=== PATIENT | male | born 1950 | race Hispanic/Latino ===

== ENCOUNTER 2018-10-30 04:33 | Inpatient (IN) | payer MEDICARE ==
[~2018-10-30] VITALS: Ht 175.3 cm; Wt 69.6 kg
[~2018-10-30 04:33] MED LIST: AMLO10TA7 PO; ASPI-555 PO; CARV12.511 PO; CLON0.1T PO; CLOP75TA32 PO; FERR325T22 PO; FOLI1TAB82 PO; FURO40TA5 PO; HUM10VIA6 SQ; HYDR-4153 PO; LISI2.5T2 PO; MULT-1258 PO; POTA10CA44 PO; ROSU20TA23 PO
[2018-10-30 05:08] LABS: BASOPHILS % (AUTO) 1.1 % (0.0-5.0); EOSINOPHILS % (AUTO) 2.5 % (0.0-8.0); HEMATOCRIT 29.9 % (42-54); LYMPHOCYTES % (AUTO) 8.9 % (21.0-51.0); MEAN CORPUSCULAR HEMOGLOBIN 28.5 pg (27.0-33.0); MEAN CORPUSCULAR VOLUME 86.4 fL (79-99); MONOCYTES % (AUTO) 7.5 % (3.0-13.0); PLATELET COUNT (AUTO) 102 K/uL (130-400); RED BLOOD CELL COUNT(AUTO) 3.46 MIL/uL (4.50-6.20); WHITE BLOOD COUNT (AUTO) 5.8 K/uL (4.8-10.8)
[2018-10-30 05:14] LABS: APPEARANCE,URINE Clear (CLEAR); BILIRUBIN,URINE Negative (NEGATIVE); COLOR,URINE Yellow (YELLOW); GLUCOSE, URINE (UA) TRACE mg/dL (NEGATIVE); KETONES,URINE Negative (NEGATIVE); LEUKOCYTE ESTERASE ,URINE Negative (NEGATIVE); NITRATE,URINE Negative (NEGATIVE); OCCULT BLOOD,URINE Negative (NEGATIVE); PROTEIN,URINE 300 mg/dL (NEGATIVE)
[2018-10-30 05:20] LABS: CREATININE 2.9 mg/dL (0.5-1.5); POTASSIUM 3.9 mmol/L (3.5-5.1)
[2018-10-30 05:21] LABS: BACTERIA,URINE None Seen /HPF (None Seen); RBC,URINE 0-1 /HPF (0-1); WBC,URINE 0-1 /HPF (0-1)
[2018-10-30 05:21] LABS: INR 1.1 (0.85-1.15); PARTIAL THROMBOPLASTIN TIME 32.3 SEC (26.3-35.5); PROTHROMBIN TIME 11.5 SEC (9.6-11.6)
[2018-10-30 05:22] LABS: AMPHET/METH SCREEN,URINE NEGATIVE (NEGATIVE); BARBITURATE SCREEN, URINE NEGATIVE (NEGATIVE); BENZODIAZEPINES SCREEN,URINE NEGATIVE (NEGATIVE); CANNABINOID SCREEN,URINE NEGATIVE (NEGATIVE); COCAINE SCREEN,URINE NEGATIVE (NEGATIVE); OPIATE SCREEN,URINE NEGATIVE (NEGATIVE); PHENCYCLIDINE SCREEN,URINE NEGATIVE (NEGATIVE)
[2018-10-30 05:32] LABS: ALBUMIN 2.9 g/dL (3.5-5.0); BILIRUBIN,TOTAL 0.4 mg/dL (0.2-1.0); THYROID STIMULATING HORMONE 5.31 uIU/mL (0.36-3.74); TOTAL PROTEIN, SERUM 7.3 g/dL (6.0-8.3)
[2018-10-30] MEDS ORDERED: ACETAMINOPHEN 325 MG TAB PO PRN ×2 (07:00)
[2018-10-30] MEDS ORDERED: ONDANSETRON HCL 4 MG/2 ML VIAL IV PRN (07:00)
[2018-10-30] MEDS ORDERED: GLUCAGON 1MG KIT 1 MG ML IM PRN (07:15)
[2018-10-30] MEDS ORDERED: DEXTROSE 50%-WATER 50 ML DISP.SYRIN IV PRN (07:15)
[2018-10-30] MEDS: INSULIN HUMULIN R 100 UNIT/ML 3ML SQ SCH ×4 (07:30→22:15)
[2018-10-30 07:35] LABS: HEMOGLOBIN A1C 7.7 % (4.0-6.0)
[2018-10-30 07:42] LABS: CHOLESTEROL 111 mg/dL (<200); HDL CHOLESTEROL 42 mg/dL (29-71); LDL DIRECT 53 mg/dL (0-99); TRIGLYCERIDES 44 mg/dL (30-200)
[2018-10-30] MEDS ORDERED: HYDRALAZINE HCL 25 MG TABLET ONE (09:19)
[2018-10-30] MEDS ORDERED: CARVEDILOL 12.5 MG TABLET PO ONE (09:20)
[2018-10-30] MEDS ORDERED: ISOSORBIDE MONO 30MG TAB SR PO ONE (09:20)
[2018-10-30] MEDS ORDERED: FUROSEMIDE 20 MG TABLET ONE (09:21)
[2018-10-30] MEDS ORDERED: DOCUSATE SODIUM 100 MG CAP PO ONE (09:58)
[2018-10-30] MEDS ORDERED: ASPIRIN 325MG EC TAB 325 MG TABLET.DR PO ONE (12:16)
[2018-10-30 13:20] VITALS: BP 153/66
[2018-10-30] MEDS ORDERED: CLONIDINE HCL 0.1 MG TABLET PO PRN (14:15)
[2018-10-30 19:25] VITALS: BP 168/71
[2018-10-30] MEDS ORDERED: CARVEDILOL 12.5 MG TABLET PO SCH (21:00)
[2018-10-30] MEDS ORDERED: HYDRALAZINE HCL 25 MG TABLET PO SCH (21:00)
[2018-10-30] MEDS ORDERED: INSULIN HUMULIN 70/30 100 UNIT/ML 3ML SQ SCH (21:00)
[2018-10-30] MEDS: HYDRALAZINE HCL 25 MG TABLET PO SCH (22:05)
[2018-10-30] MEDS: DOCUSATE SODIUM 100 MG CAP PO SCH (22:06)
[2018-10-30] MEDS: CARVEDILOL 12.5 MG TABLET PO SCH (22:06)
[2018-10-30 23:30] VITALS: BP 181/79
[2018-10-31] MEDS ORDERED: CLONIDINE HCL 0.1 MG TABLET PO PRN (00:15)
[2018-10-31 03:35] VITALS: BP 156/75
[2018-10-31] MEDS: INSULIN HUMULIN R 100 UNIT/ML 3ML SQ SCH ×4 (05:44→22:49)
[2018-10-31 06:44] LABS: BASOPHILS % (AUTO) 0.6 % (0.0-5.0); HEMATOCRIT 27.4 % (42-54); LYMPHOCYTES % (AUTO) 6.5 % (21.0-51.0); MEAN CORPUSCULAR HEMOGLOBIN 28.9 pg (27.0-33.0); MEAN CORPUSCULAR HGB CONC 33.5 g/dL (32.0-36.0); MEAN CORPUSCULAR VOLUME 86.2 fL (79-99); MONOCYTES % (AUTO) 7.3 % (3.0-13.0); NEUTROPHILS % (AUTO) 83.6 % (40.0-77.0); NUCLEATED RED BLOOD CELLS 0.1 % (0.0-0.19); PLATELET COUNT (AUTO) 97 K/uL (130-400); RED BLOOD CELL COUNT(AUTO) 3.18 MIL/uL (4.50-6.20); RED CELL DISTRIBUTION WIDTH 17.1 % (11.0-15.5); WHITE BLOOD COUNT (AUTO) 6.5 K/uL (4.8-10.8)
[2018-10-31 06:50] LABS: ALBUMIN 2.6 g/dL (3.5-5.0); BILIRUBIN,TOTAL 0.5 mg/dL (0.2-1.0); CREATININE 2.6 mg/dL (0.5-1.5); POTASSIUM 3.5 mmol/L (3.5-5.1); TOTAL PROTEIN, SERUM 6.8 g/dL (6.0-8.3)
[2018-10-31 07:00] VITALS: BP 167/75
[2018-10-31] MEDS: FOLIC ACID/VITAMIN B COMP W-C 1 MG CAP/TAB PO SCH (08:47)
[2018-10-31] MEDS: AMLODIPINE BESYLATE 5 MG TAB PO SCH (08:56)
[2018-10-31] MEDS: FERROUS SULFATE 325 MG TABLET.DR PO SCH (08:56)
[2018-10-31] MEDS: DOCUSATE SODIUM 100 MG CAP PO SCH ×2 (08:56→22:43)
[2018-10-31] MEDS: ISOSORBIDE MONO 30MG TAB SR PO SCH (08:56)
[2018-10-31] MEDS: ASPIRIN 81 MG EC TAB PO SCH (08:57)
[2018-10-31] MEDS: CLOPIDOGREL BISULFATE 75 MG TAB PO SCH (08:57)
[2018-10-31] MEDS: CARVEDILOL 12.5 MG TABLET PO SCH ×2 (08:57→22:43)
[2018-10-31] MEDS ORDERED: NON-FORMULARY MEDICATION 1 EACH (Potassium Chloride 10 MEQ) PO SCH (09:00)
[2018-10-31] MEDS: DIALYVITE PO SCH (09:00)
[2018-10-31] MEDS ORDERED: NON-FORMULARY MEDICATION 1 EACH (Lisinopril 2.5 MG) PO SCH (09:00)
[2018-10-31] MEDS ORDERED: [UNRECOGNIZED DRUG - REMARK] PO SCH (09:00)
[2018-10-31] MEDS ORDERED: NON-FORMULARY MEDICATION 1 EACH (Multivits-Min/FA/Lycopene/Lut (Centrum Silver Tablet) 1 E PO SCH (09:00)
[2018-10-31] MEDS ORDERED: NON-FORMULARY MEDICATION 1 EACH (Rosuvastatin Calcium (Crestor) 20 MG) PO SCH (09:00)
[2018-10-31] MEDS ORDERED: INSULIN HUMULIN 70/30 100 UNIT/ML 3ML SQ SCH (09:00)
[2018-10-31] MEDS: ROSUVASTATIN 20MG PO SCH (09:00)
[2018-10-31] MEDS: HYDRALAZINE HCL 25 MG TABLET PO SCH ×2 (09:08→22:42)
[2018-10-31] MEDS: FUROSEMIDE 40 MG TABLET PO SCH (09:55)
[2018-10-31 16:00] VITALS: BP 148/60
[2018-10-31] MEDS: POTASSIUM CHLORIDE 10 MEQ/TAB.SA PO SCH (19:09)
[2018-10-31 20:00] VITALS: BP 127/57
[2018-11-01] VITALS: BP 144/65
[2018-11-01 04:00] VITALS: BP 118/55
[2018-11-01 06:01] LABS: EOSINOPHILS % (AUTO) 2.6 % (0.0-8.0); HEMATOCRIT 29.6 % (42-54); LYMPHOCYTES % (AUTO) 7.7 % (21.0-51.0); MEAN CORPUSCULAR HEMOGLOBIN 28.8 pg (27.0-33.0); MEAN CORPUSCULAR HGB CONC 33.5 g/dL (32.0-36.0); MONOCYTES % (AUTO) 8.6 % (3.0-13.0); NEUTROPHILS % (AUTO) 80.1 % (40.0-77.0); NUCLEATED RED BLOOD CELLS 0.1 % (0.0-0.19); PLATELET COUNT (AUTO) 120 K/uL (130-400); RED BLOOD CELL COUNT(AUTO) 3.44 MIL/uL (4.50-6.20); RED CELL DISTRIBUTION WIDTH 17.4 % (11.0-15.5); WHITE BLOOD COUNT (AUTO) 5.7 K/uL (4.8-10.8)
[2018-11-01 06:12] LABS: CREATININE 2.8 mg/dL (0.5-1.5); POTASSIUM 4.1 mmol/L (3.5-5.1)
[2018-11-01 06:31] LABS: B-TYPE NATRIURETIC PEPTIDE 1450 pg/mL (0-100)
[2018-11-01 07:00] VITALS: BP 142/63
[2018-11-01] MEDS: INSULIN HUMULIN R 100 UNIT/ML 3ML SQ SCH ×2 (07:30→11:30)
[2018-11-01] MEDS: FOLIC ACID/VITAMIN B COMP W-C 1 MG CAP/TAB PO SCH (08:30)
[2018-11-01] MEDS: CLOPIDOGREL BISULFATE 75 MG TAB PO SCH (08:30)
[2018-11-01] MEDS: ASPIRIN 81 MG EC TAB PO SCH (08:30)
[2018-11-01] MEDS: POTASSIUM CHLORIDE 10 MEQ/TAB.SA PO SCH (08:31)
[2018-11-01] MEDS: ISOSORBIDE MONO 30MG TAB SR PO SCH (08:31)
[2018-11-01] MEDS: CARVEDILOL 12.5 MG TABLET PO SCH (08:32)
[2018-11-01] MEDS: FERROUS SULFATE 325 MG TABLET.DR PO SCH (08:32)
[2018-11-01] MEDS: FUROSEMIDE 40 MG TABLET PO SCH (08:32)
[2018-11-01] MEDS: DOCUSATE SODIUM 100 MG CAP PO SCH (08:33)
[2018-11-01] MEDS: HYDRALAZINE HCL 25 MG TABLET PO SCH (08:33)
[2018-11-01] MEDS: ROSUVASTATIN 20MG PO SCH (08:33)
[2018-11-01] MEDS: DIALYVITE PO SCH (08:34)
[2018-11-01] MEDS: AMLODIPINE BESYLATE 5 MG TAB PO SCH (09:00)
[2018-11-01 11:00] VITALS: BP 126/56
[2018-11-01] MEDS ORDERED: CLOP75TA14 PO (13:18)
[2018-11-01] MEDS ORDERED: ASPI-1005 PO (13:18)
== END 2018-11-01 17:15 | disposition home health service (06) | DRG 65 ==
LOC: EDH 04:33 → EDHIP 07:05 → 3CH 14:33
PROVIDERS: ADMIT Internal Medicine; ATTEND Internal Medicine
DX: I63.9 Cerebral infarction, unspecified (principal); E44.0 Moderate protein-calorie malnutrition; I13.0 Hypertensive heart and chronic kidney disease with heart failure and stage 1 through stage 4 chronic kidney disease, or unspecified chronic kidney disease; I50.22 Chronic systolic (congestive) heart failure; N18.4 Chronic kidney disease, stage 4 (severe); E78.5 Hyperlipidemia, unspecified; I10 Essential (primary) hypertension; M21.332 Wrist drop, left wrist; G56.30 Lesion of radial nerve, unspecified upper limb; I25.10 Atherosclerotic heart disease of native coronary artery without angina pectoris; D63.8 Anemia in other chronic diseases classified elsewhere; E11.21 Type 2 diabetes mellitus with diabetic nephropathy; E11.22 Type 2 diabetes mellitus with diabetic chronic kidney disease; E11.51 Type 2 diabetes mellitus with diabetic peripheral angiopathy without gangrene; Z68.22 Body mass index [BMI] 22.0-22.9, adult; I25.5 Ischemic cardiomyopathy; Z82.0 Family history of epilepsy and other diseases of the nervous system; Z82.3 Family history of stroke; Z82.49 Family history of ischemic heart disease and other diseases of the circulatory system; Z82.5 Family history of asthma and other chronic lower respiratory diseases; Z83.3 Family history of diabetes mellitus; Z86.73 Personal history of transient ischemic attack (TIA), and cerebral infarction without residual deficits; Z95.1 Presence of aortocoronary bypass graft; Z95.810 Presence of automatic (implantable) cardiac defibrillator; Z90.49 Acquired absence of other specified parts of digestive tract
CPT/HCPCS: 36415; 70450; 71045; 72125; 80048; 80053; 80061; 80305; 81001; 82550; 82948; 83036; 83605; 83880; 84443; 84484; 85025; 85610; 85730; 92522; 92610; 93005; 93880; 97039; G0378; J1815; J7070

== ENCOUNTER → 2019-07-28 | Outpatient (CLI) | payer MEDICARE ==
[~2019-07-28] MED LIST changes: +ASPI-1005 PO; +CLOP75TA14 PO
== END | disposition home or self-care (01) ==
LOC: SHCH 08:26
PROVIDERS: ATTEND Internal Medicine Cardiovascular Disease
DX: I65.23 Occlusion and stenosis of bilateral carotid arteries (principal); I08.3 Combined rheumatic disorders of mitral, aortic and tricuspid valves
CPT/HCPCS: 93306; 93880

== ENCOUNTER 2020-04-09 04:02 | Inpatient (IN) | payer MEDICARE ==
[~2020-04-09] VITALS: Ht 175.3 cm; Wt 74.7 kg
[~2020-04-09 04:02] MED LIST changes: +AMLO-258 PO; -AMLO10TA7 PO; -ASPI-555 PO; +ASPI-556 PO; +LISI2.5T13 PO; -LISI2.5T2 PO
[2020-04-09 04:53] LABS: BASOPHILS % (AUTO) 0.1 % (0.0-5.0); EOSINOPHILS % (AUTO) 1.8 % (0.0-8.0); HEMATOCRIT 37.6 % (42-54); LYMPHOCYTES % (AUTO) 3.9 % (21.0-51.0); MEAN CORPUSCULAR HEMOGLOBIN 29.1 pg (27.0-33.0); MEAN CORPUSCULAR HGB CONC 31.9 g/dL (32.0-36.0); MONOCYTES % (AUTO) 5.9 % (3.0-13.0); NEUTROPHILS % (AUTO) 87.6 % (40.0-77.0); PLATELET COUNT (AUTO) 89 K/uL (130-400); RED BLOOD CELL COUNT(AUTO) 4.13 MIL/uL (4.50-6.20); RED CELL DISTRIBUTION WIDTH 15.8 % (11.0-15.5); WHITE BLOOD COUNT (AUTO) 13.1 K/uL (4.8-10.8)
[2020-04-09] MEDS ORDERED: ZOSYN 3.375GM+NS 50ML 50 ML IV ONE (04:55)
[2020-04-09 04:59] LABS: APPEARANCE,URINE Turbid (CLEAR); BILIRUBIN,URINE Negative (NEGATIVE); COLOR,URINE Dark Yellow (YELLOW); GLUCOSE, URINE (UA) TRACE mg/dL (NEGATIVE); KETONES,URINE Negative (NEGATIVE); LEUKOCYTE ESTERASE ,URINE Large (NEGATIVE); NITRATE,URINE Negative (NEGATIVE); OCCULT BLOOD,URINE Large (NEGATIVE); PROTEIN,URINE 300 mg/dL (NEGATIVE)
[2020-04-09 05:06] LABS: INR 1.59 (0.85-1.15); PROTHROMBIN TIME 16.3 SEC (9.6-11.6)
[2020-04-09 05:07] LABS: PARTIAL THROMBOPLASTIN TIME 34.9 SEC (26.3-35.5)
[2020-04-09 05:13] LABS: B-TYPE NATRIURETIC PEPTIDE 3870 pg/mL (0-100)
[2020-04-09 05:15] LABS: BILIRUBIN,TOTAL 1.5 mg/dL (0.2-1.0); CREATININE 3.8 mg/dL (0.5-1.5); MAGNESIUM 1.9 mg/dL (1.80-2.40); POTASSIUM 4.9 mmol/L (3.5-5.1); TROPONIN I 0.45 ng/mL (0.00-0.06)
[2020-04-09 05:17] LABS: PLATELET MORPHOLOGY PLT CLUMPS PRESENT
[2020-04-09 05:19] LABS: BACTERIA,URINE Many /HPF (None Seen); RBC,URINE 26-50 /HPF (0-1); WBC,URINE >100 /HPF (0-1)
[2020-04-09 05:20] LABS: ABG BASE EXCESS -13.9 mmol/L (-2.0-3.0); ABG OXYGEN SATURATION 99.7 % (95.0-99.0); ABG PCO2 24 mmHg (35-48)
[2020-04-09] MEDS ORDERED: PHARMACY COMMUNICATION MISC SCH ×3 (08:15→14:00)
[2020-04-09] MEDS ORDERED: Vitamin B Complex/Vit C/Folic Acid PO SCH (08:30)
[2020-04-09 08:38] LABS: AMPHET/METH SCREEN,URINE NEGATIVE (NEGATIVE); BARBITURATE SCREEN, URINE NEGATIVE (NEGATIVE); BENZODIAZEPINES SCREEN,URINE NEGATIVE (NEGATIVE); CANNABINOID SCREEN,URINE NEGATIVE (NEGATIVE); COCAINE SCREEN,URINE NEGATIVE (NEGATIVE); CREATININE,URINE RANDOM 74 mg/dL (30-135); OPIATE SCREEN,URINE NEGATIVE (NEGATIVE); PHENCYCLIDINE SCREEN,URINE NEGATIVE (NEGATIVE); SODIUM,URINE RANDOM 21 mmol/l (40-220)
[2020-04-09] MEDS ORDERED: FAMOTIDINE 20MG TAB PO SCH (09:00)
[2020-04-09] MEDS ORDERED: Vitamin B Complex/Vit C/Folic Acid ONE (09:01)
[2020-04-09] MEDS ORDERED: COMPOUND IV MISC 1 EACH IVSOLN MISC PRN (10:45)
[2020-04-09] MEDS: LEVETIRACETAM 250 MG in 0.9%NACL 100ML 100 ML IV SCH ×2 (11:00→21:00)
[2020-04-09] MEDS ORDERED: FUROSEMIDE 20MG VIAL ONE (11:04)
[2020-04-09] MEDS ORDERED: PANTOPRAZOLE 40 MG TAB DR ONE (11:05)
[2020-04-09] MEDS ORDERED: FUROSEMIDE 40MG VIAL ONE ×3 (11:05→21:47)
[2020-04-09] MEDS ORDERED: HEPARIN 5,000 UNIT VIAL ONE ×2 (11:05→21:46)
[2020-04-09] MEDS ORDERED: [UNRECOGNIZED DRUG - REMARK] IV SCH (12:00)
[2020-04-09] MEDS ORDERED: COMPOUND IV REFRIGERATED 1 EACH IVSOLN MISC PRN (15:15)
[2020-04-09] MEDS: [UNRECOGNIZED DRUG - OTHER] IV SCH (15:15)
[2020-04-09] MEDS: DAPTOMYCIN IV SCH (15:15)
[2020-04-09] MEDS: SODIUM BICARBONATE 650 MG TAB PO SCH (21:00)
[2020-04-09] MEDS ORDERED: FAMOTIDINE 20MG TAB ONE (21:46)
[2020-04-09] MEDS ORDERED: SODIUM BICARBONATE 650 MG TAB ONE (21:47)
[2020-04-10] MEDS: INSULIN HUMULIN R 100 UNIT/ML 3ML SQ SCH ×4 (06:00→18:00)
[2020-04-10 07:04] LABS: BASOPHILS % (AUTO) 0.1 % (0.0-5.0); HEMATOCRIT 35.4 % (42-54); LYMPHOCYTES % (AUTO) 2.8 % (21.0-51.0); MEAN CORPUSCULAR HEMOGLOBIN 28.6 pg (27.0-33.0); MEAN CORPUSCULAR HGB CONC 32.8 g/dL (32.0-36.0); MEAN CORPUSCULAR VOLUME 87.4 fL (79-99); MONOCYTES % (AUTO) 5.7 % (3.0-13.0); NEUTROPHILS % (AUTO) 90.9 % (40.0-77.0); PLATELET COUNT (AUTO) 94 K/uL (130-400); RED BLOOD CELL COUNT(AUTO) 4.05 MIL/uL (4.50-6.20); RED CELL DISTRIBUTION WIDTH 15.8 % (11.0-15.5); WHITE BLOOD COUNT (AUTO) 13.5 K/uL (4.8-10.8)
[2020-04-10 07:31] LABS: CREATININE 3.6 mg/dL (0.5-1.5); MAGNESIUM 2.2 mg/dL (1.80-2.40); POTASSIUM 4.2 mmol/L (3.5-5.1)
[2020-04-10] MEDS ORDERED: FUROSEMIDE 40MG VIAL ONE ×2 (08:04→19:53)
[2020-04-10] MEDS: SODIUM BICARBONATE 650 MG TAB PO SCH ×2 (09:00→21:00)
[2020-04-10] MEDS: PANTOPRAZOLE 40 MG TAB DR PO SCH (09:00)
[2020-04-10] MEDS: LEVETIRACETAM 250 MG in 0.9%NACL 100ML 100 ML IV SCH ×2 (09:00→21:00)
[2020-04-10 10:59] LABS: HEMOGLOBIN A1C 7.7 % (4.0-6.0)
[2020-04-10] MEDS ORDERED: HEPARIN 5,000 UNIT VIAL ONE ×2 (11:31→19:53)
[2020-04-10] MEDS ORDERED: Vitamin B Complex/Vit C/Folic Acid ONE (11:31)
[2020-04-10] MEDS ORDERED: LEVETIRACETAM 500 MG/5 ML SD VIAL IV ONE (11:31)
[2020-04-10] MEDS ORDERED: SODIUM BICARBONATE 650 MG TAB ONE ×2 (11:31→19:53)
[2020-04-10] MEDS ORDERED: PANTOPRAZOLE 40 MG TAB DR ONE (11:32)
[2020-04-10] MEDS ORDERED: 0.9%NACL 50ML 50 ML IV ONE (11:32)
[2020-04-10] MEDS ORDERED: ZOSYN 3.375GM+NS 50ML 50 ML IV ONE (19:54)
[2020-04-11] MEDS ORDERED: INSULIN HUMULIN R 100 UNIT/ML 3ML ONE ×2 (01:04→11:38)
[2020-04-11] MEDS: INSULIN HUMULIN R 100 UNIT/ML 3ML SQ SCH ×5 (06:00→20:47)
[2020-04-11 07:41] LABS: ALBUMIN 2.3 g/dL (3.5-5.0); BILIRUBIN,TOTAL 0.7 mg/dL (0.2-1.0); TOTAL PROTEIN, SERUM 6.5 g/dL (6.0-8.3)
[2020-04-11] MEDS ORDERED: FUROSEMIDE 40MG VIAL ONE (07:57)
[2020-04-11] MEDS ORDERED: HEPARIN 5,000 UNIT VIAL ONE (07:57)
[2020-04-11] MEDS ORDERED: SODIUM BICARBONATE 650 MG TAB ONE (07:57)
[2020-04-11] MEDS ORDERED: VITAMIN B COMPLEX 1 CAPSULE ONE (07:58)
[2020-04-11] MEDS ORDERED: ZOSYN 3.375GM+NS 50ML 50 ML IV ONE (07:58)
[2020-04-11] MEDS ORDERED: PANTOPRAZOLE 40 MG TAB DR ONE (07:58)
[2020-04-11] MEDS: PANTOPRAZOLE 40 MG TAB DR PO SCH (09:00)
[2020-04-11] MEDS: LEVETIRACETAM 250 MG in 0.9%NACL 100ML 100 ML IV SCH ×2 (09:00→22:14)
[2020-04-11] MEDS: SODIUM BICARBONATE 650 MG TAB PO SCH (09:00)
[2020-04-11] MEDS: Vitamin B Complex/Vit C/Folic Acid PO SCH (09:00)
[2020-04-11] MEDS: [UNRECOGNIZED DRUG - OTHER] IV SCH (15:15)
[2020-04-11] MEDS: DAPTOMYCIN IV SCH (15:15)
[2020-04-11] MEDS: HEPARIN 5,000 UNIT VIAL SQ SCH (18:45)
[2020-04-11] MEDS: FUROSEMIDE 40MG VIAL IVP SCH (20:30)
[2020-04-11] MEDS: ZOSYN 3.375GM+NS 50ML 50 ML IV SCH (20:30)
[2020-04-11 20:40] VITALS: BP 135/76
[2020-04-11 23:49] VITALS: BP 145/76
[2020-04-12 00:07] LABS: HEPATITIS Bs ANTIGEN SCREEN P Negative (Negative)
[2020-04-12] MEDS: HEPARIN 5,000 UNIT VIAL SQ SCH ×3 (03:36→19:28)
[2020-04-12 04:23] VITALS: BP 139/77
[2020-04-12] MEDS: INSULIN HUMULIN R 100 UNIT/ML 3ML SQ SCH ×5 (05:10→23:19)
[2020-04-12 08:00] VITALS: BP 147/93
[2020-04-12] MEDS: ZOSYN 3.375GM+NS 50ML 50 ML IV SCH ×2 (08:28→21:07)
[2020-04-12] MEDS: LEVETIRACETAM 250 MG in 0.9%NACL 100ML 100 ML IV SCH ×2 (08:28→21:58)
[2020-04-12] MEDS: FUROSEMIDE 40MG VIAL IVP SCH ×2 (08:29→21:07)
[2020-04-12] MEDS: Vitamin B Complex/Vit C/Folic Acid PO SCH (08:29)
[2020-04-12] MEDS: PANTOPRAZOLE 40 MG TAB DR PO SCH (08:29)
[2020-04-12 12:00] VITALS: BP 162/78
[2020-04-12 12:59] LABS: BASOPHILS % (AUTO) 0.1 % (0.0-5.0); EOSINOPHILS % (AUTO) 0.7 % (0.0-8.0); HEMATOCRIT 33.9 % (42-54); LYMPHOCYTES % (AUTO) 4.2 % (21.0-51.0); MEAN CORPUSCULAR HEMOGLOBIN 28.7 pg (27.0-33.0); MEAN CORPUSCULAR VOLUME 86.9 fL (79-99); MONOCYTES % (AUTO) 6.3 % (3.0-13.0); NEUTROPHILS % (AUTO) 88.2 % (40.0-77.0); PLATELET COUNT (AUTO) 92 K/uL (130-400); RED CELL DISTRIBUTION WIDTH 15.8 % (11.0-15.5); WHITE BLOOD COUNT (AUTO) 8.8 K/uL (4.8-10.8)
[2020-04-12 13:17] LABS: CREATININE 4.1 mg/dL (0.5-1.5); POTASSIUM 3.5 mmol/L (3.5-5.1)
[2020-04-12 16:00] VITALS: BP 137/78
[2020-04-12] MEDS: ACETAMINOPHEN 325 MG TAB PO PRN (19:28)
[2020-04-12 20:43] VITALS: BP 137/77
[2020-04-13] VITALS (12 sets, daily range): BP systolic 123–155; BP diastolic 69–88
[2020-04-13] MEDS: HEPARIN 5,000 UNIT VIAL SQ SCH ×3 (02:45→20:14)
[2020-04-13] MEDS: INSULIN HUMULIN R 100 UNIT/ML 3ML SQ SCH ×3 (05:56→17:20)
[2020-04-13 06:24] LABS: INR 1.26 (0.85-1.15); PROTHROMBIN TIME 13.2 SEC (9.6-11.6)
[2020-04-13 06:25] LABS: PARTIAL THROMBOPLASTIN TIME 34.5 SEC (26.3-35.5)
[2020-04-13 06:37] LABS: ALBUMIN 2.2 g/dL (3.5-5.0); CREATININE 4.2 mg/dL (0.5-1.5); PHOSPHORUS 5.2 mg/dL (2.5-4.9); POTASSIUM 3.5 mmol/L (3.5-5.1)
[2020-04-13] MEDS ORDERED: ALBUMIN (HUMAN) 25% 200 ML IV SCH (10:00)
[2020-04-13] MEDS: LEVETIRACETAM 250 MG in 0.9%NACL 100ML 100 ML IV SCH ×2 (10:25→20:55)
[2020-04-13] MEDS: ZOSYN 3.375GM+NS 50ML 50 ML IV SCH ×2 (10:25→20:11)
[2020-04-13] MEDS: Vitamin B Complex/Vit C/Folic Acid PO SCH (10:33)
[2020-04-13] MEDS: PANTOPRAZOLE 40 MG TAB DR PO SCH (10:33)
[2020-04-13] MEDS: FUROSEMIDE 40MG VIAL IVP SCH ×2 (10:39→20:56)
[2020-04-13 12:29] LABS: APPEARANCE BODY FLUID SLIGHTLY CLOUDY (CLEAR); COLOR,BODY FLUID DARK YELLOW (LT YELLOW); SPECIMENTYPE,BODY FLUID ASCITES; TOTAL VOLUME,BODY FLUID 5200 mL
[2020-04-13 12:30] LABS: BODY FLUID RBC 5750 /cu. mm.; BODY FLUID WBC 150 /cu. mm.
[2020-04-13 12:36] LABS: BF EOSINOPHIL 1 %; BF LYMPHOCYTE 17 %; BF MESOTHELIAL 8 %; BF MONOCYTE 4 %
[2020-04-13] MEDS: DAPTOMYCIN IV SCH (17:20)
[2020-04-13] MEDS: [UNRECOGNIZED DRUG - OTHER] IV SCH (17:20)
[2020-04-14] MEDS: HEPARIN 5,000 UNIT VIAL SQ SCH ×3 (02:38→21:16)
[2020-04-14 03:35] VITALS: BP 137/78
[2020-04-14 05:57] LABS: BASOPHILS % (AUTO) 0.1 % (0.0-5.0); EOSINOPHILS % (AUTO) 1.4 % (0.0-8.0); HEMATOCRIT 33.1 % (42-54); LYMPHOCYTES % (AUTO) 5.4 % (21.0-51.0); MEAN CORPUSCULAR HEMOGLOBIN 28.5 pg (27.0-33.0); MEAN CORPUSCULAR HGB CONC 32.9 g/dL (32.0-36.0); MEAN CORPUSCULAR VOLUME 86.4 fL (79-99); MONOCYTES % (AUTO) 7.1 % (3.0-13.0); NEUTROPHILS % (AUTO) 85.3 % (40.0-77.0); NUCLEATED RED BLOOD CELLS 0.3 % (0.0-0.19); PLATELET COUNT (AUTO) 87 K/uL (130-400); RED BLOOD CELL COUNT(AUTO) 3.83 MIL/uL (4.50-6.20); RED CELL DISTRIBUTION WIDTH 15.4 % (11.0-15.5); WHITE BLOOD COUNT (AUTO) 7.2 K/uL (4.8-10.8)
[2020-04-14] MEDS: INSULIN HUMULIN R 100 UNIT/ML 3ML SQ SCH ×4 (05:57→21:16)
[2020-04-14 06:18] LABS: CREATININE 4.4 mg/dL (0.5-1.5); MAGNESIUM 2.1 mg/dL (1.80-2.40); POTASSIUM 3.7 mmol/L (3.5-5.1)
[2020-04-14 08:09] VITALS: BP 132/70
[2020-04-14] MEDS: ZOSYN 3.375GM+NS 50ML 50 ML IV SCH ×2 (10:41→21:00)
[2020-04-14] MEDS: FUROSEMIDE 40MG VIAL IVP SCH ×2 (10:41→21:01)
[2020-04-14] MEDS: LEVETIRACETAM 250 MG in 0.9%NACL 100ML 100 ML IV SCH ×2 (10:42→21:00)
[2020-04-14] MEDS: Vitamin B Complex/Vit C/Folic Acid PO SCH (10:42)
[2020-04-14] MEDS: PANTOPRAZOLE 40 MG TAB DR PO SCH (10:42)
[2020-04-14 11:43] VITALS: BP 134/67
[2020-04-14 13:52] LABS: ALBUMIN 2.5 g/dL (3.5-5.0); CREATININE 4.6 mg/dL (0.5-1.5); PHOSPHORUS 5.6 mg/dL (2.5-4.9); POTASSIUM 3.8 mmol/L (3.5-5.1)
[2020-04-14] MEDS: HONEY 1 APPL/ML TUBE TP SCH (16:00)
[2020-04-14 16:33] VITALS: BP 131/71
[2020-04-14] MEDS: LACTATED RINGERS 1000ML 1,000 ML IV SCH (16:57)
[2020-04-14 20:06] VITALS: BP 130/72
[2020-04-14 23:41] VITALS: BP 132/78
[2020-04-15] MEDS: ACETAMINOPHEN 325 MG TAB PO PRN ×2 (02:01→22:11)
[2020-04-15] MEDS: HEPARIN 5,000 UNIT VIAL SQ SCH ×3 (03:16→22:44)
[2020-04-15 04:13] VITALS: BP 135/66
[2020-04-15] MEDS: LACTATED RINGERS 1000ML 1,000 ML IV SCH ×2 (04:50→06:30)
[2020-04-15 05:38] LABS: BASOPHILS % (AUTO) 0.2 % (0.0-5.0); EOSINOPHILS % (AUTO) 1.7 % (0.0-8.0); HEMATOCRIT 33.3 % (42-54); LYMPHOCYTES % (AUTO) 5.8 % (21.0-51.0); MEAN CORPUSCULAR HEMOGLOBIN 28.5 pg (27.0-33.0); MEAN CORPUSCULAR HGB CONC 33.3 g/dL (32.0-36.0); MEAN CORPUSCULAR VOLUME 85.4 fL (79-99); MONOCYTES % (AUTO) 6.6 % (3.0-13.0); NEUTROPHILS % (AUTO) 85.1 % (40.0-77.0); PLATELET COUNT (AUTO) 82 K/uL (130-400); RED CELL DISTRIBUTION WIDTH 15.5 % (11.0-15.5); WHITE BLOOD COUNT (AUTO) 6.6 K/uL (4.8-10.8)
[2020-04-15 06:14] LABS: ALBUMIN 2.4 g/dL (3.5-5.0); CREATININE 4.4 mg/dL (0.5-1.5); MAGNESIUM 2.1 mg/dL (1.80-2.40); POTASSIUM 3.5 mmol/L (3.5-5.1); TOTAL PROTEIN, SERUM 6.2 g/dL (6.0-8.3)
[2020-04-15] MEDS: INSULIN HUMULIN R 100 UNIT/ML 3ML SQ SCH ×4 (06:26→20:58)
[2020-04-15 08:00] VITALS: BP 146/77
[2020-04-15] MEDS: ZOSYN 3.375GM+NS 50ML 50 ML IV SCH ×2 (09:19→22:07)
[2020-04-15] MEDS: FUROSEMIDE 40MG VIAL IVP SCH ×2 (09:21→22:08)
[2020-04-15] MEDS: PANTOPRAZOLE 40 MG TAB DR PO SCH (09:22)
[2020-04-15] MEDS: Vitamin B Complex/Vit C/Folic Acid PO SCH (09:22)
[2020-04-15] MEDS: LEVETIRACETAM 250 MG in 0.9%NACL 100ML 100 ML IV SCH ×2 (09:33→22:07)
[2020-04-15 12:46] VITALS: BP 140/73
[2020-04-15] MEDS: HONEY 1 APPL/ML TUBE TP SCH (15:05)
[2020-04-15] MEDS: [UNRECOGNIZED DRUG - OTHER] IV SCH (15:59)
[2020-04-15] MEDS: DAPTOMYCIN IV SCH (15:59)
[2020-04-15 17:11] VITALS: BP 126/66
[2020-04-15 20:00] VITALS: BP 142/70
[2020-04-16] VITALS: BP 144/70
[2020-04-16 04:00] VITALS: BP 164/80
[2020-04-16] MEDS ORDERED: CARV12.511 PO (05:08)
[2020-04-16] MEDS ORDERED: FURO20TA4 PO (05:08)
[2020-04-16] MEDS ORDERED: HYDR25 PO (05:08)
[2020-04-16] MEDS ORDERED: FERR325T22 PO (05:08)
[2020-04-16] MEDS ORDERED: ISOS30TA92 PO (05:15)
[2020-04-16] MEDS ORDERED: APIX2.5T PO (05:15)
[2020-04-16] MEDS ORDERED: ROSU20TA31 PO (05:15)
[2020-04-16] MEDS ORDERED: LEVO25TA54 PO (05:15)
[2020-04-16] MEDS ORDERED: INS7030 SQ (05:18)
[2020-04-16] MEDS ORDERED: MULT-1248 PO (05:18)
[2020-04-16] MEDS ORDERED: HUM10VIA SQ (05:20)
[2020-04-16] MEDS: INSULIN HUMULIN R 100 UNIT/ML 3ML SQ SCH ×4 (05:54→21:00)
[2020-04-16 06:21] LABS: MEAN CORPUSCULAR HEMOGLOBIN 28.5 pg (27.0-33.0); MEAN CORPUSCULAR HGB CONC 33.6 g/dL (32.0-36.0); MEAN CORPUSCULAR VOLUME 84.6 fL (79-99); RED BLOOD CELL COUNT(AUTO) 3.9 MIL/uL (4.50-6.20); RED CELL DISTRIBUTION WIDTH 15.4 % (11.0-15.5); WHITE BLOOD COUNT (AUTO) 8.6 K/uL (4.8-10.8)
[2020-04-16] MEDS: HEPARIN 5,000 UNIT VIAL SQ SCH ×3 (06:26→21:11)
[2020-04-16 06:52] LABS: CREATININE 4.8 mg/dL (0.5-1.5)
[2020-04-16 08:07] VITALS: BP 146/79
[2020-04-16] MEDS: LEVETIRACETAM 250 MG in 0.9%NACL 100ML 100 ML IV SCH ×2 (08:46→21:00)
[2020-04-16] MEDS: FUROSEMIDE 40MG VIAL IVP SCH ×2 (08:48→21:00)
[2020-04-16] MEDS: PANTOPRAZOLE 40 MG TAB DR PO SCH (08:48)
[2020-04-16] MEDS: Vitamin B Complex/Vit C/Folic Acid PO SCH (08:49)
[2020-04-16] MEDS: ZOSYN 3.375GM+NS 50ML 50 ML IV SCH ×2 (08:49→21:00)
[2020-04-16] MEDS: ACETAMINOPHEN 325 MG TAB PO PRN ×2 (09:27→21:00)
[2020-04-16 12:00] VITALS: BP 141/74
[2020-04-16] MEDS: HONEY 1 APPL/ML TUBE TP SCH (13:23)
[2020-04-16] MEDS ORDERED: KCL 20 MEQ ERTAB PO SCH (15:30)
[2020-04-16 18:14] VITALS: BP 148/74
[2020-04-16 19:00] VITALS: BP 147/77
[2020-04-17] VITALS (7 sets, daily range): BP systolic 135–156; BP diastolic 76–83
[2020-04-17] MEDS: HEPARIN 5,000 UNIT VIAL SQ SCH ×3 (05:51→21:00)
[2020-04-17] MEDS: INSULIN HUMULIN R 100 UNIT/ML 3ML SQ SCH ×4 (05:53→23:30)
[2020-04-17 07:17] LABS: BASOPHILS % (AUTO) 0.3 % (0.0-5.0); EOSINOPHILS % (AUTO) 0.9 % (0.0-8.0); HEMATOCRIT 32.3 % (42-54); LYMPHOCYTES % (AUTO) 5.7 % (21.0-51.0); MEAN CORPUSCULAR HEMOGLOBIN 28.2 pg (27.0-33.0); MEAN CORPUSCULAR HGB CONC 33.1 g/dL (32.0-36.0); MEAN CORPUSCULAR VOLUME 85.2 fL (79-99); MONOCYTES % (AUTO) 4.3 % (3.0-13.0); NEUTROPHILS % (AUTO) 88.4 % (40.0-77.0); PLATELET COUNT (AUTO) 91 K/uL (130-400); RED BLOOD CELL COUNT(AUTO) 3.79 MIL/uL (4.50-6.20); RED CELL DISTRIBUTION WIDTH 15.7 % (11.0-15.5); WHITE BLOOD COUNT (AUTO) 6.7 K/uL (4.8-10.8)
[2020-04-17 08:20] LABS: ALBUMIN 2.3 g/dL (3.5-5.0); CREATININE 4.8 mg/dL (0.5-1.5); TOTAL PROTEIN, SERUM 6.2 g/dL (6.0-8.3)
[2020-04-17] MEDS: Vitamin B Complex/Vit C/Folic Acid PO SCH (13:22)
[2020-04-17] MEDS: PANTOPRAZOLE 40 MG TAB DR PO SCH (13:22)
[2020-04-17] MEDS: LEVETIRACETAM 250 MG in 0.9%NACL 100ML 100 ML IV SCH (13:23)
[2020-04-17] MEDS: FUROSEMIDE 40MG VIAL IVP SCH ×2 (13:23→23:25)
[2020-04-17] MEDS: ZOSYN 3.375GM+NS 50ML 50 ML IV SCH ×2 (13:23→23:24)
[2020-04-17] MEDS: HONEY 1 APPL/ML TUBE TP SCH (18:37)
[2020-04-17] MEDS: ACETAMINOPHEN 325 MG TAB PO PRN (23:24)
[2020-04-17] MEDS: DAPTOMYCIN IV SCH (23:31)
[2020-04-17] MEDS: [UNRECOGNIZED DRUG - OTHER] IV SCH (23:31)
[2020-04-18 04:08] VITALS: BP 139/81
[2020-04-18] MEDS: HEPARIN 5,000 UNIT VIAL SQ SCH (05:00)
[2020-04-18 05:45] LABS: BASOPHILS % (AUTO) 0.1 % (0.0-5.0); EOSINOPHILS % (AUTO) 1.2 % (0.0-8.0); LYMPHOCYTES % (AUTO) 7.7 % (21.0-51.0); MEAN CORPUSCULAR VOLUME 84.8 fL (79-99); MONOCYTES % (AUTO) 6.4 % (3.0-13.0); NEUTROPHILS % (AUTO) 84.3 % (40.0-77.0); PLATELET COUNT (AUTO) 95 K/uL (130-400); RED BLOOD CELL COUNT(AUTO) 3.89 MIL/uL (4.50-6.20); RED CELL DISTRIBUTION WIDTH 15.8 % (11.0-15.5); WHITE BLOOD COUNT (AUTO) 6.9 K/uL (4.8-10.8)
[2020-04-18 05:59] LABS: ALBUMIN 2.3 g/dL (3.5-5.0); CREATININE 4.9 mg/dL (0.5-1.5); POTASSIUM 3.7 mmol/L (3.5-5.1); TOTAL PROTEIN, SERUM 6.2 g/dL (6.0-8.3)
[2020-04-18] MEDS: LEVETIRACETAM 250 MG in 0.9%NACL 100ML 100 ML IV SCH ×2 (06:43→17:12)
[2020-04-18] MEDS: INSULIN HUMULIN R 100 UNIT/ML 3ML SQ SCH ×4 (06:48→20:35)
[2020-04-18 07:59] VITALS: BP 146/78
[2020-04-18] MEDS: Vitamin B Complex/Vit C/Folic Acid PO SCH (08:15)
[2020-04-18] MEDS: ZOSYN 3.375GM+NS 50ML 50 ML IV SCH ×2 (08:15→20:19)
[2020-04-18] MEDS: FUROSEMIDE 40MG VIAL IVP SCH ×2 (08:15→20:20)
[2020-04-18] MEDS: PANTOPRAZOLE 40 MG TAB DR PO SCH (08:15)
[2020-04-18] MEDS: ACETAMINOPHEN 325 MG TAB PO PRN ×2 (09:21→20:35)
[2020-04-18 10:54] VITALS: BP 140/76
[2020-04-18] MEDS: HONEY 1 APPL/ML TUBE TP SCH (14:00)
[2020-04-18 16:09] VITALS: BP 135/82
[2020-04-18 20:00] VITALS: BP 144/80
[2020-04-18 23:39] VITALS: BP 143/74
[2020-04-19 03:41] VITALS: BP 149/80
[2020-04-19 04:32] LABS: BASOPHILS % (AUTO) 0.3 % (0.0-5.0); EOSINOPHILS % (AUTO) 0.8 % (0.0-8.0); HEMATOCRIT 33.5 % (42-54); LYMPHOCYTES % (AUTO) 3.9 % (21.0-51.0); MEAN CORPUSCULAR HEMOGLOBIN 28.6 pg (27.0-33.0); MEAN CORPUSCULAR HGB CONC 33.1 g/dL (32.0-36.0); MEAN CORPUSCULAR VOLUME 86.3 fL (79-99); NEUTROPHILS % (AUTO) 89.5 % (40.0-77.0); PLATELET COUNT (AUTO) 92 K/uL (130-400); RED BLOOD CELL COUNT(AUTO) 3.88 MIL/uL (4.50-6.20); WHITE BLOOD COUNT (AUTO) 10.1 K/uL (4.8-10.8)
[2020-04-19 04:51] LABS: ALBUMIN 2.4 g/dL (3.5-5.0); BILIRUBIN,TOTAL 1.1 mg/dL (0.2-1.0); POTASSIUM 3.8 mmol/L (3.5-5.1); TOTAL PROTEIN, SERUM 6.4 g/dL (6.0-8.3)
[2020-04-19] MEDS: LEVETIRACETAM 250 MG in 0.9%NACL 100ML 100 ML IV SCH ×2 (05:05→18:00)
[2020-04-19] MEDS: INSULIN HUMULIN R 100 UNIT/ML 3ML SQ SCH ×3 (07:30→16:30)
[2020-04-19 08:22] VITALS: BP 148/82
[2020-04-19] MEDS: PANTOPRAZOLE 40 MG TAB DR PO SCH (09:37)
[2020-04-19] MEDS: Vitamin B Complex/Vit C/Folic Acid PO SCH (09:37)
[2020-04-19] MEDS: ZOSYN 3.375GM+NS 50ML 50 ML IV SCH ×2 (09:38→20:57)
[2020-04-19] MEDS: FUROSEMIDE 40MG VIAL IVP SCH ×2 (09:38→20:57)
[2020-04-19 11:45] VITALS: BP 144/76
[2020-04-19] MEDS: HONEY 1 APPL/ML TUBE TP SCH (14:00)
[2020-04-19] MEDS: [UNRECOGNIZED DRUG - OTHER] IV SCH (15:15)
[2020-04-19] MEDS: DAPTOMYCIN IV SCH (15:15)
[2020-04-19 20:00] VITALS: BP 147/83
== END 2020-04-19 23:30 | DRG 871 ==
LOC: EDH 04:02 → EDHIP 06:34 → 4BH 04-11 18:13 → 4CH 04-16 18:00
PROVIDERS: ADMIT Internal Medicine; ATTEND Internal Medicine
PROC: 0W9G3ZZ Drainage of Peritoneal Cavity, Percutaneous Approach (ICD-10-PCS; principal; 2020-04-13)
DX: A41.2 Sepsis due to unspecified staphylococcus (principal); J96.01 Acute respiratory failure with hypoxia; R65.21 Severe sepsis with septic shock; N17.0 Acute kidney failure with tubular necrosis; J96.21 Acute and chronic respiratory failure with hypoxia; N18.6 End stage renal disease; E43 Unspecified severe protein-calorie malnutrition; I50.43 Acute on chronic combined systolic (congestive) and diastolic (congestive) heart failure; E87.2 Acidosis; R18.8 Other ascites; N30.01 Acute cystitis with hematuria; K76.6 Portal hypertension; L03.116 Cellulitis of left lower limb; I13.2 Hypertensive heart and chronic kidney disease with heart failure and with stage 5 chronic kidney disease, or end stage renal disease; I24.8 Other forms of acute ischemic heart disease; I42.0 Dilated cardiomyopathy; L03.115 Cellulitis of right lower limb; L97.929 Non-pressure chronic ulcer of unspecified part of left lower leg with unspecified severity; K74.60 Unspecified cirrhosis of liver; G40.909 Epilepsy, unspecified, not intractable, without status epilepticus; I25.5 Ischemic cardiomyopathy; K72.90 Hepatic failure, unspecified without coma; D64.9 Anemia, unspecified; D69.6 Thrombocytopenia, unspecified; D72.810 Lymphocytopenia; E11.22 Type 2 diabetes mellitus with diabetic chronic kidney disease; E11.51 Type 2 diabetes mellitus with diabetic peripheral angiopathy without gangrene; E11.621 Type 2 diabetes mellitus with foot ulcer; E66.9 Obesity, unspecified; E78.5 Hyperlipidemia, unspecified; I25.10 Atherosclerotic heart disease of native coronary artery without angina pectoris; I48.0 Paroxysmal atrial fibrillation; L97.519 Non-pressure chronic ulcer of other part of right foot with unspecified severity; B95.62 Methicillin resistant Staphylococcus aureus infection as the cause of diseases classified elsewhere; R53.81 Other malaise; N50.89 Other specified disorders of the male genital organs; R29.6 Repeated falls; Z74.01 Bed confinement status; Z79.01 Long term (current) use of anticoagulants; Z95.810 Presence of automatic (implantable) cardiac defibrillator; Z95.1 Presence of aortocoronary bypass graft; Z89.421 Acquired absence of other right toe(s); Z91.81 History of falling; Z86.73 Personal history of transient ischemic attack (TIA), and cerebral infarction without residual deficits; Z83.3 Family history of diabetes mellitus; Z82.5 Family history of asthma and other chronic lower respiratory diseases; Z82.49 Family history of ischemic heart disease and other diseases of the circulatory system; Z82.3 Family history of stroke; Z82.0 Family history of epilepsy and other diseases of the nervous system; Z20.822 Contact with and (suspected) exposure to COVID-19
CPT/HCPCS: 36415; 36600; 49083; 70450; 71045; 74176; 78306; 80048; 80053; 80069; 80190; 80305; 81001; 82140; 82550; 82570; 82803; 82948; 83036; 83605; 83735; 83874; 83880; 84134; 84145; 84300; 84484; 84540; 85025; 85027; 85610; 85730; 86701; 86900; 86901; 87040; 87071; 87077; 87088; 87186; 87205; 87340; 87390; 87426; 87520; 89051; 92522; 92610; 93005; 93306; 93356; 93970; 97039; A9503; C1729; G0378; J0878; J1644; J1815; J1940; J1953; J2543; J7120; P9046; U0003